=== PATIENT | male | born 1985 | race Caucasian/White ===

== ENCOUNTER 2018-11-10 11:42 | Inpatient (IN) | payer MEDICAID, OTHER ==
[~2018-11-10] VITALS: Ht 185.4 cm; Wt 95.0 kg
[2018-11-10] MEDS ORDERED: HYDROcodone/acetaminophen 5mg/325mg tablet PO ONE (13:50)
[2018-11-10] MEDS ORDERED: sulfamethoxazole/trimethoprim DS (800/160mg) tablet PO ONE (13:55)
[2018-11-10] MEDS ORDERED: CefTRIAXone 1000mg IM Kit (w/lidocaine diluent) IM ONE (13:55)
[2018-11-10] MEDS ORDERED: CefTRIAXone 2gm/D5W 50ml 50 ML IV ONE (14:00)
[2018-11-10] MEDS ORDERED: normal saline 1000ML IV soln IV ONE ×2 (14:00→15:45)
[2018-11-10 14:20] LABS: CLARITY,URINE CLOUDY (Clear); COLOR,URINE ORANGE (Yellow)
[2018-11-10 14:22] LABS: UA COLLECTION TYPE CLN CATCH MIDSTREAM
[2018-11-10 14:28] LABS: MUCUS STRANDS FEW /LPF (Neg)
[2018-11-10 14:29] LABS: FINE GRANULAR CAST 0-3 /LPF (NEGATIVE); SQUAMOUS EPITHELIAL CELL,UR MODERATE /LPF (FEW)
[2018-11-10 14:30] LABS: RBC,URINE 0-2 /HPF (0-2)
[2018-11-10 14:36] LABS: BASOPHILS # (AUTO) 0.1 X10'3 (0-0.2); LYMPHOCYTES # (AUTO) 0.8 X10'3 (1.1-4.8); MEAN CORPUSCULAR HEMOGLOBIN 32.4 PG (27.0-31.0); MEAN PLATELET VOLUME 8.4 FL (7.4-10.4); MONOCYTES # (AUTO) 1.5 X10'3 (0-0.9); NEUTROPHILS # (AUTO) 11.6 X10'3 (1.8-7.7); RED CELL DISTRIBUTION WIDTH 14.4 % (11.5-14.5)
[2018-11-10 14:38] LABS: BASOPHILS % (AUTO) 0.5 % (0-1); EOSINOPHILS % (AUTO) 0.2 % (0-6); HEMATOCRIT 49.6 % (42.0-52.0); HEMOGLOBIN 17.4 g/dl (14.0-17.9); LYMPHOCYTES % (AUTO) 5.9 % (21-51); MEAN CORPUSCULAR HGB CONC 35.1 g/dL (33.0-36.5); MEAN CORPUSCULAR VOLUME 92.5 FL (78-98); MONOCYTES % (AUTO) 10.4 % (2-12); PLATELET COUNT 112 X10'3 (140-440); RED BLOOD COUNT 5.37 X10'6 (4.70-6.10)
[2018-11-10 14:40] LABS: BACTERIA,URINE 2+ /HPF (Neg); HYALINE CASTS >30 /LPF (NEGATIVE); RENAL CELLS, URINE FEW /HPF; TRANSITIONAL EPI CELLS,URINE FEW /HPF
[2018-11-10 14:49] LABS: PARTIAL THROMBOPLASTIN TIME 32 SECONDS (22-32)
[2018-11-10 14:54] LABS: ALANINE AMINOTRANSFERASE 77 U/L (12-78); ALBUMIN 3.2 G/DL (3.4-5.0); ALBUMIN/GLOBULIN RATIO 0.7 (1.1-1.5); ALKALINE PHOSPHATASE 78 IU/L (46-116); ANION GAP 11 (8-16); ASPARTATE AMINO TRANSFERASE 85 U/L (10-37); BLOOD UREA NITROGEN 8 MG/DL (7-18); BUN/CREATININE RATIO 8.6 (5.4-32.0); CALCIUM 8.6 MG/DL (8.5-10.1); CHLORIDE 95 MMOL/L (99-107); CREATININE 0.93 MG/DL (0.60-1.10); GLUCOSE 136 MG/DL (70-104); MAGNESIUM 1.1 MG/DL (1.5-2.4); POTASSIUM 3.3 MMOL/L (3.5-5.1); SODIUM 129 MMOL/L (135-145); TOTAL CARBON DIOXIDE 23.5 MMOL/L (24-32); TOTAL PROTEIN 7.7 G/DL (6.4-8.2); eGFR > 90 ML/MIN
[2018-11-10 15:08] LABS: LARGE PLATELETS FEW; PLATELET ESTIMATE DECREASED; TOTAL CELLS COUNTED 100
[2018-11-10] MEDS ORDERED: magnesium 4gm in 100ml NS 100 ML IV PRN (16:05)
[2018-11-10] MEDS: K and/or MAG REPLACEMENT MC SCH (16:05)
[2018-11-10] MEDS ORDERED: morphine 2 MG/ML inj. syringe IV PRN ×2 (16:05)
[2018-11-10] MEDS ORDERED: potassium CL 10mEq/100ml bag 100 ML IV PRN ×2 (16:05)
[2018-11-10] MEDS ORDERED: acetaminophen 325mg tablet PO PRN (16:05)
[2018-11-10] MEDS ORDERED: HYDROcodone/acetaminophen 10/325mg tab PO PRN (16:05)
[2018-11-10] MEDS ORDERED: ondansetron/PF 4mg/2ml inj IV PRN (16:05)
[2018-11-10] MEDS ORDERED: magnesium hydroxide 30ml (MOM) UD suspension PO PRN (16:05)
[2018-11-10] MEDS ORDERED: HYDROcodone/acetaminophen 5mg/325mg tablet PO PRN (16:05)
[2018-11-10] MEDS ORDERED: magnesium 2GM in 50ml NS 50 ML IV PRN (16:05)
[2018-11-10] MEDS ORDERED: azithromycin 250mg tablet PO ONE (16:05)
[2018-11-10] MEDS ORDERED: mag hydrox/Alum hydrox/simeth 30ml oral suspension PO PRN (16:05)
[2018-11-10] MEDS ORDERED: potassium Cl 20 mEq SR tablet PO PRN (16:05)
[2018-11-10] MEDS ORDERED: NO HOME MEDS (16:16)
[2018-11-10] MEDS: normal saline 1000ml 1,000 ML IV SCH (18:29)
[2018-11-10] MEDS: potassium Cl 20 mEq SR tablet PO PRN (19:08)
[2018-11-10] MEDS: magnesium Cl slow-release 64mg tablet PO PRN (19:12)
--- NOTE | 2018-11-10 20:20 | NUR ---
Patient in room [facility]. I have received report from MUMTAZ Ledesma and had the opportunity to ask questions and assume patient care.
[2018-11-10 20:30] VITALS: BP 135/67
[2018-11-10] MEDS: cefepime 2g/NS 100ml ADVANTAGE 100 ML IV SCH (20:54)
[2018-11-10] MEDS: heparin, porcine 5000 units/ml vial SQ SCH (20:55)
[2018-11-10] MEDS: acetaminophen 325mg tablet PO PRN (23:58)
[2018-11-11] VITALS: BP 107/65
[2018-11-11] MEDS: potassium Cl 20 mEq SR tablet PO PRN ×4 (01:00→17:22)
[2018-11-11] MEDS: normal saline 1000ml 1,000 ML IV SCH ×3 (01:00→13:18)
[2018-11-11 05:53] LABS: BASOPHILS % (AUTO) 0.3 % (0-1); EOSINOPHILS % (AUTO) 0.1 % (0-6); HEMATOCRIT 46.6 % (42.0-52.0); HEMOGLOBIN 16.2 g/dl (14.0-17.9); LYMPHOCYTES # (AUTO) 0.8 X10'3 (1.1-4.8); LYMPHOCYTES % (AUTO) 7.3 % (21-51); MEAN CORPUSCULAR HEMOGLOBIN 32.2 PG (27.0-31.0); MEAN CORPUSCULAR HGB CONC 34.7 g/dL (33.0-36.5); MEAN CORPUSCULAR VOLUME 92.9 FL (78-98); MEAN PLATELET VOLUME 8.9 FL (7.4-10.4); MONOCYTES # (AUTO) 1.4 X10'3 (0-0.9); MONOCYTES % (AUTO) 12.5 % (2-12); NEUTROPHILS # (AUTO) 8.8 X10'3 (1.8-7.7); NEUTROPHILS % (AUTO) 79.8 % (42-75); PLATELET COUNT 87 X10'3 (140-440); RED BLOOD COUNT 5.02 X10'6 (4.70-6.10); RED CELL DISTRIBUTION WIDTH 14.1 % (11.5-14.5); WHITE BLOOD COUNT 11.1 X10'3 (4.5-11.0)
--- NOTE | 2018-11-11 06:04 | NUR ---
Problems reprioritized. Patient report given, questions answered & plan of care reviewed with MUMTAZ Moore.
[2018-11-11 06:08] LABS: ALANINE AMINOTRANSFERASE 58 U/L (12-78); ALBUMIN 2.6 G/DL (3.4-5.0); ALBUMIN/GLOBULIN RATIO 0.7 (1.1-1.5); ALKALINE PHOSPHATASE 63 IU/L (46-116); ANION GAP 13 (8-16); ASPARTATE AMINO TRANSFERASE 54 U/L (10-37); BILIRUBIN,TOTAL 1.9 MG/DL (0.1-1.0); BLOOD UREA NITROGEN 7 MG/DL (7-18); BUN/CREATININE RATIO 8.4 (5.4-32.0); CALCIUM 7.6 MG/DL (8.5-10.1); CHLORIDE 100 MMOL/L (99-107); CREATININE 0.83 MG/DL (0.60-1.10); GLUCOSE 103 MG/DL (70-104); MAGNESIUM 1.1 MG/DL (1.5-2.4); POTASSIUM 3.4 MMOL/L (3.5-5.1); SODIUM 133 MMOL/L (135-145); TOTAL CARBON DIOXIDE 20.4 MMOL/L (24-32); TOTAL PROTEIN 6.5 G/DL (6.4-8.2); eGFR > 90 ML/MIN
--- NOTE | 2018-11-11 06:41 | NUR ---
Patient in room [facility]. I have received report from MUMTAZ Puri and had the opportunity to ask questions and assume patient care.
[2018-11-11] MEDS: heparin, porcine 5000 units/ml vial SQ SCH (07:09)
[2018-11-11 07:41] LABS: PLATELET ESTIMATE DECREASED; TOTAL CELLS COUNTED 100
[2018-11-11 08:00] VITALS: BP 142/79
[2018-11-11] MEDS: K and/or MAG REPLACEMENT MC SCH (08:00)
[2018-11-11] MEDS: cefepime 2g/NS 100ml ADVANTAGE 100 ML IV SCH ×2 (08:17→20:43)
[2018-11-11] MEDS: acetaminophen 325mg tablet PO PRN ×2 (11:05→17:51)
[2018-11-11 12:00] VITALS: BP 145/81
--- NOTE | 2018-11-11 15:28 | NUR ---
Spoke with MD about patient plt count of 87 and holding heparin, received order to D/C because patient is ambulatory. MD also notified of patient fever of 102.4 and asked if MD wanted repeat blood cultures. stated that we do not need them since it is within 24 hour of them being drawn.
[2018-11-11] MEDS ORDERED: VANCOMYCIN LEVEL IV ONE (16:30)
[2018-11-11] MEDS ORDERED: LORazepam 2 mg/ml vial IV PRN (17:00)
[2018-11-11] MEDS ORDERED: dextrose 50%-water 50ml dispensing syringe IV PRN (17:00)
[2018-11-11] MEDS ORDERED: haloperidol lactate 5mg/ml inj IM PRN (17:00)
[2018-11-11] MEDS ORDERED: haloperidol 5mg tablet PO PRN (17:00)
[2018-11-11] MEDS: magnesium Cl slow-release 64mg tablet PO PRN (17:21)
--- NOTE | 2018-11-11 18:10 | NUR ---
Problems reprioritized. Patient report given, questions answered & plan of care reviewed with MUMTAZ Kimball.
[2018-11-11 18:51] LABS: CLARITY,URINE SLIGHTLY CLOUDY (Clear); COLOR,URINE AMBER (Yellow); GLUCOSE, URINE NEGATIVE (Neg); KETONES,URINE NEGATIVE (Neg); LEUKOCYTE ESTERASE ,URINE NEGATIVE (Neg); NITRITES, URINE NEGATIVE (Neg); OCCULT BLOOD,URINE TRACE-INTACT (Neg); PH,URINE 6.5 (4.8-8.0); PROTEIN,URINE TRACE mg/dl (Neg); UROBILINOGEN,URINE 0.2 E.U/dL (0.2-1.0)
[2018-11-11 18:52] LABS: UA COLLECTION TYPE CLN CATCH MIDSTREAM
[2018-11-11 18:59] LABS: BACTERIA,URINE FEW /HPF (Neg); RBC,URINE 0-2 /HPF (0-2); SQUAMOUS EPITHELIAL CELL,UR FEW /LPF (FEW); WBC,URINE 0-4 /HPF (0-4)
[2018-11-11 19:00] VITALS: BP 129/69
[2018-11-11 19:03] LABS: URINE AMPHETAMINE SCREEN NEGATIVE (Neg); URINE BARBITUATE SCREEN NEGATIVE (Neg); URINE BENZODIAZEPINES SCREEN NEGATIVE (Neg); URINE CANNABINOID SCREEN NEGATIVE (Neg); URINE COCAINE SCREEN NEGATIVE (Neg); URINE METHADONE SCREEN NEGATIVE (Neg); URINE OPIATE SCREEN POSITIVE (Neg); URINE PHENCYCLIDINE SCREEN NEGATIVE (Neg)
[2018-11-11] MEDS: lactobacillus rhamnosus 10,000 MMU CELLS/CAPSULE PO SCH (20:42)
[2018-11-12] MEDS: normal saline 1000ml 1,000 ML IV SCH ×3 (00:03→12:23)
[2018-11-12 00:33] VITALS: BP 132/79
[2018-11-12 06:35] LABS: BASOPHILS % (AUTO) 0.5 % (0-1); EOSINOPHILS # (AUTO) 0.1 X10'3 (0-0.9); EOSINOPHILS % (AUTO) 0.6 % (0-6); HEMATOCRIT 45.6 % (42.0-52.0); HEMOGLOBIN 15.7 g/dl (14.0-17.9); LYMPHOCYTES # (AUTO) 1.1 X10'3 (1.1-4.8); LYMPHOCYTES % (AUTO) 11.9 % (21-51); MEAN CORPUSCULAR HEMOGLOBIN 32.2 PG (27.0-31.0); MEAN CORPUSCULAR HGB CONC 34.5 g/dL (33.0-36.5); MEAN CORPUSCULAR VOLUME 93.3 FL (78-98); MEAN PLATELET VOLUME 9.2 FL (7.4-10.4); MONOCYTES # (AUTO) 1.2 X10'3 (0-0.9); NEUTROPHILS # (AUTO) 6.7 X10'3 (1.8-7.7); PLATELET COUNT 102 X10'3 (140-440); RED BLOOD COUNT 4.89 X10'6 (4.70-6.10); RED CELL DISTRIBUTION WIDTH 14.6 % (11.5-14.5)
[2018-11-12 06:50] LABS: ALANINE AMINOTRANSFERASE 53 U/L (12-78); ALBUMIN 2.6 G/DL (3.4-5.0); ALBUMIN/GLOBULIN RATIO 0.6 (1.1-1.5); ALKALINE PHOSPHATASE 63 IU/L (46-116); ANION GAP 14 (8-16); ASPARTATE AMINO TRANSFERASE 51 U/L (10-37); BILIRUBIN,TOTAL 1.2 MG/DL (0.1-1.0); BLOOD UREA NITROGEN 8 MG/DL (7-18); BUN/CREATININE RATIO 10.1 (5.4-32.0); CALCIUM 8.2 MG/DL (8.5-10.1); CHLORIDE 102 MMOL/L (99-107); CREATININE 0.79 MG/DL (0.60-1.10); GLUCOSE 99 MG/DL (70-104); MAGNESIUM 1.4 MG/DL (1.5-2.4); PHOSPHORUS 2.2 MG/DL (2.3-4.5); POTASSIUM 3.5 MMOL/L (3.5-5.1); SODIUM 135 MMOL/L (135-145); TOTAL CARBON DIOXIDE 19.3 MMOL/L (24-32); TOTAL PROTEIN 6.9 G/DL (6.4-8.2); eGFR > 90 ML/MIN
[2018-11-12 07:36] VITALS: BP 130/98
[2018-11-12] MEDS: cefepime 2g/NS 100ml ADVANTAGE 100 ML IV SCH ×2 (07:57→19:27)
[2018-11-12] MEDS: multivitamins, therapeutics tablet PO SCH (07:57)
[2018-11-12] MEDS: thiamine 100mg tablet PO SCH (07:57)
[2018-11-12] MEDS: lactobacillus rhamnosus 10,000 MMU CELLS/CAPSULE PO SCH ×2 (07:58→19:27)
[2018-11-12] MEDS: folic acid 1mg tablet PO SCH (07:58)
[2018-11-12] MEDS: K and/or MAG REPLACEMENT MC SCH (08:00)
[2018-11-12] MEDS: LORazepam 1 MG tablet PO PRN ×3 (08:32→12:21)
[2018-11-12 11:48] VITALS: BP 123/72
[2018-11-12] MEDS: magnesium Cl slow-release 64mg tablet PO PRN (12:21)
[2018-11-12] MEDS ORDERED: thiamine inj. 100 MG in normal saline 100ml IV soln 100 ML IV ONE (17:30)
[2018-11-12] MEDS ORDERED: haloperidol 5mg tablet PO PRN (17:30)
[2018-11-12] MEDS ORDERED: haloperidol lactate 5mg/ml inj IM PRN (17:30)
[2018-11-12 18:00] VITALS: BP 118/82
[2018-11-12] MEDS: LORazepam 2 mg/ml vial IV PRN ×4 (18:07→23:53)
[2018-11-12 18:17] LABS: URINE AMPHETAMINE SCREEN NEGATIVE (Neg); URINE BARBITUATE SCREEN NEGATIVE (Neg); URINE BENZODIAZEPINES SCREEN NEGATIVE (Neg); URINE CANNABINOID SCREEN NEGATIVE (Neg); URINE COCAINE SCREEN NEGATIVE (Neg); URINE METHADONE SCREEN NEGATIVE (Neg); URINE OPIATE SCREEN NEGATIVE (Neg); URINE PHENCYCLIDINE SCREEN NEGATIVE (Neg)
--- NOTE | 2018-11-12 18:25 | NUR ---
Patient in room [facility]. I have received report from Alina PANDYA and Jean Carlos PANDYA and had the opportunity to ask questions and assume patient care.
--- NOTE | 2018-11-12 18:31 | NUR ---
Problems reprioritized. Patient report given, questions answered & plan of care reviewed with Gilma PANDYA.
--- NOTE | 2018-11-12 18:46 | NUR ---
pt refused dinner tray, had pretzels and string cheese, blood sugar before dinner was 109 will reassess at 2100
[2018-11-12 19:00] VITALS: BP 118/82
[2018-11-13 00:20] VITALS: BP 154/101
[2018-11-13] MEDS ORDERED: VANCOMYCIN LEVEL IV ONE (01:30)
[2018-11-13] MEDS: LORazepam 2 mg/ml vial IV PRN ×2 (02:45→04:31)
[2018-11-13] MEDS: normal saline 1000ml 1,000 ML IV SCH ×3 (02:45→20:12)
[2018-11-13 03:00] LABS: ALANINE AMINOTRANSFERASE 66 U/L (12-78); ALBUMIN 2.4 G/DL (3.4-5.0); ALBUMIN/GLOBULIN RATIO 0.6 (1.1-1.5); ALKALINE PHOSPHATASE 59 IU/L (46-116); ANION GAP 11 (8-16); ASPARTATE AMINO TRANSFERASE 89 U/L (10-37); BILIRUBIN,TOTAL 1.2 MG/DL (0.1-1.0); BLOOD UREA NITROGEN 7 MG/DL (7-18); BUN/CREATININE RATIO 11.5 (5.4-32.0); CALCIUM 8.2 MG/DL (8.5-10.1); CHLORIDE 104 MMOL/L (99-107); CREATININE 0.61 MG/DL (0.60-1.10); GLUCOSE 92 MG/DL (70-104); MAGNESIUM 1.4 MG/DL (1.5-2.4); PHOSPHORUS 2.2 MG/DL (2.3-4.5); POTASSIUM 3.4 MMOL/L (3.5-5.1); SODIUM 137 MMOL/L (135-145); TOTAL CARBON DIOXIDE 22.2 MMOL/L (24-32); TOTAL PROTEIN 6.1 G/DL (6.4-8.2); eGFR > 90 ML/MIN
[2018-11-13 03:47] LABS: BASOPHILS % (AUTO) 0.6 % (0-1); EOSINOPHILS # (AUTO) 0.1 X10'3 (0-0.9); EOSINOPHILS % (AUTO) 1.8 % (0-6); HEMOGLOBIN 14.5 g/dl (14.0-17.9); LYMPHOCYTES # (AUTO) 0.9 X10'3 (1.1-4.8); LYMPHOCYTES % (AUTO) 12.5 % (21-51); MEAN CORPUSCULAR HEMOGLOBIN 32.9 PG (27.0-31.0); MEAN CORPUSCULAR HGB CONC 35.4 g/dL (33.0-36.5); MEAN CORPUSCULAR VOLUME 92.9 FL (78-98); MEAN PLATELET VOLUME 9.2 FL (7.4-10.4); MONOCYTES # (AUTO) 0.8 X10'3 (0-0.9); NEUTROPHILS % (AUTO) 73.1 % (42-75); PLATELET COUNT 109 X10'3 (140-440); RED BLOOD COUNT 4.41 X10'6 (4.70-6.10); RED CELL DISTRIBUTION WIDTH 14.4 % (11.5-14.5); WHITE BLOOD COUNT 6.9 X10'3 (4.5-11.0)
--- NOTE | 2018-11-13 05:50 | NUR ---
spoke with [facility] informed her pt is not keeping tele on right now, she stated she would put pts tele on standby until pts condition has changed, I will inform day shift wilma. pt was crawling in bed and banged mouth against end bed rail mouth bled slight wiped with gauze no more blood present, I will inform day shift nurse.
--- NOTE | 2018-11-13 06:24 | NUR ---
Gave report to Brenna PANDYA pt is laying on side, sitter at bedside, pt on RA,
[2018-11-13 07:00] VITALS: BP 142/64
[2018-11-13] MEDS: K and/or MAG REPLACEMENT MC SCH (08:00)
[2018-11-13] MEDS ORDERED: folic acid inj. 2 MG, thiamine inj. 100 MG, MVI, adult No.4 with vit. K 10 ML in dextro... IV SCH ×4 (08:00)
[2018-11-13] MEDS: thiamine 100mg tablet PO SCH (08:00)
[2018-11-13] MEDS: cefepime 2g/NS 100ml ADVANTAGE 100 ML IV SCH ×2 (08:31→20:07)
--- NOTE | 2018-11-13 09:17 | NUR ---
PT IS SLEEPY AND SOMEWHAT GROGGY, HUNG IV MEDS BUT WILL WAIT FOR HIM TO BE MORE ALERT TO GIVE PO MEDS
[2018-11-13] MEDS: lactobacillus rhamnosus 10,000 MMU CELLS/CAPSULE PO SCH ×2 (09:51→21:29)
[2018-11-13] MEDS: potassium Cl 20 mEq SR tablet PO PRN (09:51)
[2018-11-13] MEDS: folic acid 1mg tablet PO SCH (09:51)
[2018-11-13] MEDS: multivitamins, therapeutics tablet PO SCH (09:51)
[2018-11-13] MEDS: magnesium Cl slow-release 64mg tablet PO PRN (09:51)
[2018-11-13 11:00] VITALS: BP 134/79
--- NOTE | 2018-11-13 13:00 | NUR ---
pt is alert and able to speak. he is not agitated
[2018-11-13] MEDS: piperacillin/tazo 3.375gm/50ml 50 ML IV SCH ×2 (16:00→23:27)
--- NOTE | 2018-11-13 16:50 | NUR ---
offered scrotal support and tried to put tele on several times. pt is pleasant but quite active. constantly moving and shifting.
--- NOTE | 2018-11-13 18:05 | NUR ---
Received report from Brenna PANDYA pt is on RA, mother at bedside,in no apparent distress,
--- NOTE | 2018-11-13 18:11 | NUR ---
GAVE REPORT TO HECTOR PANDYA
[2018-11-13 19:00] VITALS: BP 157/91
[2018-11-14 00:41] VITALS: BP 144/74
[2018-11-14] MEDS: normal saline 1000ml 1,000 ML IV SCH ×2 (02:39→08:03)
[2018-11-14 06:13] LABS: BASOPHILS % (AUTO) 0.7 % (0-1); EOSINOPHILS # (AUTO) 0.2 X10'3 (0-0.9); EOSINOPHILS % (AUTO) 3.3 % (0-6); HEMATOCRIT 43.7 % (42.0-52.0); HEMOGLOBIN 15.3 g/dl (14.0-17.9); LYMPHOCYTES % (AUTO) 14.2 % (21-51); MEAN CORPUSCULAR HEMOGLOBIN 32.8 PG (27.0-31.0); MEAN CORPUSCULAR VOLUME 93.7 FL (78-98); MONOCYTES # (AUTO) 0.7 X10'3 (0-0.9); MONOCYTES % (AUTO) 9.6 % (2-12); NEUTROPHILS # (AUTO) 5.1 X10'3 (1.8-7.7); NEUTROPHILS % (AUTO) 72.2 % (42-75); PLATELET COUNT 138 X10'3 (140-440); RED BLOOD COUNT 4.66 X10'6 (4.70-6.10); RED CELL DISTRIBUTION WIDTH 14.3 % (11.5-14.5)
[2018-11-14 06:26] LABS: ALANINE AMINOTRANSFERASE 141 U/L (12-78); ALBUMIN 2.4 G/DL (3.4-5.0); ALBUMIN/GLOBULIN RATIO 0.6 (1.1-1.5); ALKALINE PHOSPHATASE 67 IU/L (46-116); ANION GAP 10 (8-16); ASPARTATE AMINO TRANSFERASE 172 U/L (10-37); BILIRUBIN,TOTAL 1.3 MG/DL (0.1-1.0); BLOOD UREA NITROGEN 5 MG/DL (7-18); BUN/CREATININE RATIO 8.6 (5.4-32.0); CALCIUM 8.1 MG/DL (8.5-10.1); CHLORIDE 102 MMOL/L (99-107); CREATININE 0.58 MG/DL (0.60-1.10); GLUCOSE 81 MG/DL (70-104); MAGNESIUM 1.7 MG/DL (1.5-2.4); POTASSIUM 3.7 MMOL/L (3.5-5.1); SODIUM 136 MMOL/L (135-145); TOTAL CARBON DIOXIDE 24.1 MMOL/L (24-32); TOTAL PROTEIN 6.4 G/DL (6.4-8.2); eGFR > 90 ML/MIN
--- NOTE | 2018-11-14 06:33 | NUR ---
Gave report to Brenna PANDYA pt is resting, sitter at bedside
--- NOTE | 2018-11-14 06:44 | NUR ---
RECEIVED REPORT FROM HECTOR PANDYA. DID BEDSIDE REPORT. AFTER BEDSIDE REPORT, CHECKED IN WITH SITTER. PT IS ON 3 ABX. LET SITTER KNOW TO NOTIFY ME IF PT IS HAVING LOOSE STOOL.
[2018-11-14 07:00] VITALS: BP 147/98
[2018-11-14] MEDS: thiamine 100mg tablet PO SCH (07:56)
[2018-11-14] MEDS: multivitamins, therapeutics tablet PO SCH (07:57)
[2018-11-14] MEDS: folic acid 1mg tablet PO SCH (07:57)
[2018-11-14] MEDS: lactobacillus rhamnosus 10,000 MMU CELLS/CAPSULE PO SCH ×2 (07:57→20:32)
[2018-11-14] MEDS: cefepime 2g/NS 100ml ADVANTAGE 100 ML IV SCH ×2 (08:00→20:06)
[2018-11-14] MEDS: K and/or MAG REPLACEMENT MC SCH (08:00)
--- NOTE | 2018-11-14 08:08 | NUR ---
checked vanco trough before admin vanco. trough nromal vanco adminned
--- NOTE | 2018-11-14 08:09 | NUR ---
MOM CALLED FOR AN UPDATE. SHE WILL BE IN LATER THIS MORNING.
[2018-11-14] MEDS: piperacillin/tazo 3.375gm/50ml 50 ML IV SCH ×2 (10:00→20:18)
[2018-11-14 11:00] VITALS: BP 119/71
[2018-11-14] MEDS: fluconazole 100mg tablet PO SCH (12:06)
[2018-11-14] MEDS: nystatin 15 GM powder TP SCH ×2 (13:00→20:34)
[2018-11-14] MEDS ORDERED: LORazepam 1 MG tablet PO PRN (17:30)
[2018-11-14] MEDS ORDERED: LORazepam 2 mg/ml vial IV PRN (17:30)
[2018-11-14 19:00] VITALS: BP 142/99
[2018-11-14 23:38] VITALS: BP 156/105
[2018-11-15] VITALS (7 sets, daily range): BP systolic 137–144; BP diastolic 82–98
[2018-11-15] MEDS: piperacillin/tazo 3.375gm/50ml 50 ML IV SCH (04:01)
[2018-11-15 05:29] LABS: BASOPHILS # (AUTO) 0.1 X10'3 (0-0.2); EOSINOPHILS # (AUTO) 0.3 X10'3 (0-0.9); HEMOGLOBIN 15.4 g/dl (14.0-17.9); LYMPHOCYTES # (AUTO) 1.3 X10'3 (1.1-4.8); MEAN CORPUSCULAR HEMOGLOBIN 32.3 PG (27.0-31.0); MONOCYTES # (AUTO) 0.8 X10'3 (0-0.9); NEUTROPHILS % (AUTO) 64.1 % (42-75)
[2018-11-15 05:32] LABS: BASOPHILS % (AUTO) 0.8 % (0-1); MEAN CORPUSCULAR HGB CONC 34.3 g/dL (33.0-36.5); MEAN CORPUSCULAR VOLUME 94.2 FL (78-98); MEAN PLATELET VOLUME 8.7 FL (7.4-10.4); MONOCYTES % (AUTO) 12.1 % (2-12); NEUTROPHILS # (AUTO) 4.3 X10'3 (1.8-7.7); PLATELET COUNT 190 X10'3 (140-440); RED BLOOD COUNT 4.78 X10'6 (4.70-6.10); RED CELL DISTRIBUTION WIDTH 14.2 % (11.5-14.5); WHITE BLOOD COUNT 6.7 X10'3 (4.5-11.0)
[2018-11-15 05:34] LABS: ALANINE AMINOTRANSFERASE 196 U/L (12-78); ALBUMIN 2.4 G/DL (3.4-5.0); ALBUMIN/GLOBULIN RATIO 0.6 (1.1-1.5); ALKALINE PHOSPHATASE 72 IU/L (46-116); ANION GAP 10 (8-16); ASPARTATE AMINO TRANSFERASE 197 U/L (10-37); BILIRUBIN,TOTAL 0.8 MG/DL (0.1-1.0); BLOOD UREA NITROGEN 5 MG/DL (7-18); BUN/CREATININE RATIO 7.5 (5.4-32.0); CALCIUM 8.3 MG/DL (8.5-10.1); CHLORIDE 103 MMOL/L (99-107); CREATININE 0.67 MG/DL (0.60-1.10); GLUCOSE 124 MG/DL (70-104); MAGNESIUM 1.9 MG/DL (1.5-2.4); PHOSPHORUS 3.3 MG/DL (2.3-4.5); POTASSIUM 3.4 MMOL/L (3.5-5.1); SODIUM 138 MMOL/L (135-145); TOTAL CARBON DIOXIDE 24.7 MMOL/L (24-32); TOTAL PROTEIN 6.5 G/DL (6.4-8.2); eGFR > 90 ML/MIN
--- NOTE | 2018-11-15 06:43 | NUR ---
Problems reprioritized. Patient report given, questions answered & plan of care reviewed with MUMTAZ Giles.
--- NOTE | 2018-11-15 06:45 | NUR ---
Patient in room [facility] 348. I have received report from MUMTAZ BORDEN and had the opportunity to ask questions and assume patient care.
[2018-11-15] MEDS: multivitamins, therapeutics tablet PO SCH (07:23)
[2018-11-15] MEDS: thiamine 100mg tablet PO SCH (07:23)
[2018-11-15] MEDS: fluconazole 100mg tablet PO SCH (07:23)
[2018-11-15] MEDS: cefepime 2g/NS 100ml ADVANTAGE 100 ML IV SCH (07:23)
[2018-11-15] MEDS: lactobacillus rhamnosus 10,000 MMU CELLS/CAPSULE PO SCH ×2 (07:23→19:26)
[2018-11-15] MEDS: nystatin 15 GM powder TP SCH ×3 (07:23→19:59)
[2018-11-15] MEDS: folic acid 1mg tablet PO SCH (07:23)
[2018-11-15] MEDS: K and/or MAG REPLACEMENT MC SCH (08:00)
[2018-11-15] MEDS ORDERED: iohexol 300mg/ml 100ml inj. ONE (12:45)
[2018-11-15] MEDS ORDERED: potassium CL 10mEq/100ml bag 100 ML IV PRN (13:00)
[2018-11-15] MEDS ORDERED: potassium Cl 20 mEq SR tablet PO PRN (13:00)
[2018-11-15] MEDS: potassium Cl 20 mEq SR tablet PO PRN ×3 (14:42→23:35)
--- NOTE | 2018-11-15 15:06 | NUR ---
initial: patient with good appetite, ate poorly between 11/12-11/13 and otherwise has been eating 75-100% of meals. Admitted with sepsis, scrotal cellulitis, and EtOH withdrawal, receiving thiamine and folic acid. Patient receiving zyvox, met at bedside and given written low tyramine education handout with verbal review. Recommend: 1. continue regular diet 2. weight per rx Addendum: 11/15/18 at [address] Amended: Links added.
[2018-11-15] MEDS: piperacillin/tazo 4.5gm/100ml 100 ML IV SCH ×2 (15:41→23:25)
[2018-11-15] MEDS: normal saline 1000ml 1,000 ML IV SCH ×2 (17:51→23:23)
--- NOTE | 2018-11-15 18:51 | NUR ---
Problems reprioritized. Patient report given, questions answered & plan of care reviewed with MUMTAZ LOERA.
--- NOTE | 2018-11-15 18:55 | NUR ---
Patient in room [facility] 348. I have received report from Tisha PANDYA and had the opportunity to ask questions and assume patient care.
[2018-11-15] MEDS: linezolid 600mg tablet PO SCH (19:27)
[2018-11-16] MEDS: normal saline 1000ml 1,000 ML IV SCH (03:21)
--- NOTE | 2018-11-16 06:27 | NUR ---
Patient in room [facility] 348. I have received report from MUMTAZ Morelos and had the opportunity to ask questions and assume patient care.
--- NOTE | 2018-11-16 06:30 | NUR ---
Problems reprioritized. Patient report given, questions answered & plan of care reviewed with Onelia PANDYA.
[2018-11-16 06:56] VITALS: BP 139/93
[2018-11-16] MEDS: K and/or MAG REPLACEMENT MC SCH (08:00)
[2018-11-16] MEDS: piperacillin/tazo 4.5gm/100ml 100 ML IV SCH (08:25)
[2018-11-16] MEDS: nystatin 15 GM powder TP SCH ×3 (08:25→21:57)
[2018-11-16] MEDS: thiamine 100mg tablet PO SCH (08:25)
[2018-11-16] MEDS: lactobacillus rhamnosus 10,000 MMU CELLS/CAPSULE PO SCH ×2 (08:25→21:45)
[2018-11-16] MEDS: folic acid 1mg tablet PO SCH (08:25)
[2018-11-16] MEDS: multivitamins, therapeutics tablet PO SCH (08:25)
[2018-11-16] MEDS: linezolid 600mg tablet PO SCH ×2 (08:25→21:45)
[2018-11-16 11:45] VITALS: BP 136/86
[2018-11-16 12:14] LABS: POTASSIUM 3.7 MMOL/L (3.5-5.1)
[2018-11-16] MEDS ORDERED: LORazepam 1 MG tablet PO PRN (17:30)
[2018-11-16] MEDS ORDERED: LORazepam 2 mg/ml vial IV PRN (17:30)
[2018-11-16 18:30] VITALS: BP 133/85
--- NOTE | 2018-11-16 18:30 | NUR ---
Patient in room [facility] 348. I have received report from Tisha PANDYA and had the opportunity to ask questions and assume patient care.
--- NOTE | 2018-11-16 18:33 | NUR ---
Problems reprioritized. Patient report given, questions answered & plan of care reviewed with MUMTAZ Morelos.
[2018-11-17] VITALS: BP 129/72
--- NOTE | 2018-11-17 06:30 | NUR ---
Problems reprioritized. Patient report given, questions answered & plan of care reviewed with Bertha PANDYA.
[2018-11-17 08:00] VITALS: BP 131/86
[2018-11-17] MEDS: K and/or MAG REPLACEMENT MC SCH (08:00)
[2018-11-17] MEDS: multivitamins, therapeutics tablet PO SCH (08:25)
[2018-11-17] MEDS: thiamine 100mg tablet PO SCH (08:25)
[2018-11-17] MEDS: folic acid 1mg tablet PO SCH (08:25)
[2018-11-17] MEDS: linezolid 600mg tablet PO SCH (08:25)
[2018-11-17] MEDS: nystatin 15 GM powder TP SCH (08:26)
[2018-11-17] MEDS: lactobacillus rhamnosus 10,000 MMU CELLS/CAPSULE PO SCH (08:26)
[2018-11-17] MEDS ORDERED: LINE600T14 PO (10:15)
[2018-11-17 11:00] VITALS: BP 148/77
--- NOTE | 2018-11-17 11:00 | NUR ---
Resource nurse received call from lab and let this nurse know that pt. 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 Pt. immediately placed on contact precautions for infection control. pt. made aware. made aware. Discharge on hold until we can verify that Zyvox can be covered by insurance.
--- NOTE | 2018-11-17 11:47 | NUR ---
Spoke with case management r/t Zyvox prescription and coverage. Pt. does not have insurance- hospital will cover medication and [facility] will fax pharmacy.
--- NOTE | 2018-11-17 13:21 | NUR ---
Patient A&O and no apparent distress. Patient able to ambulate for DC with no complaints accompanied by x1 staff and parents. 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 All patient belongings dc'd with patient.
--- NOTE | 2018-11-17 13:47 | NUR ---
Pt. discharge while this RN was on break. IV DC'd pressure bandage applied, no s/sx bleeding noted. Pt. mother picked him up in a private vehicle, hospital staff escorted him out of hospital. Pt. left with his belongings. He is aware to return if any worsening symptoms, he has had verbal and written education on his new antibiotic and on self care. He is aware to Go to [facility] for his prescription and to f/u with his PCP within a week.
--- NOTE | 2018-11-17 16:19 | NUR ---
called to receive contact information for pt. She would like pt. to follow up outpatient with labs r/t elevated liver tests. Contact information provided to .
== END 2018-11-17 13:20 | disposition home or self-care (01) | DRG 720 ==
LOC: ER 11:43 → SUR 3N 20:56 → CMPBEDREQ 21:25 → SUR 3N 11-15 10:19
PROVIDERS: ADMIT Family Medicine; ATTEND Internal Medicine
PROC: BW2G1ZZ Computerized Tomography (CT Scan) of Pelvic Region using Low Osmolar Contrast (ICD-10-PCS; principal; 2018-11-15)
DX: A41.9 Sepsis, unspecified organism (principal); E87.1 Hypo-osmolality and hyponatremia; E87.6 Hypokalemia; N39.0 Urinary tract infection, site not specified; N49.2 Inflammatory disorders of scrotum; N50.89 Other specified disorders of the male genital organs; E86.1 Hypovolemia; E66.9 Obesity, unspecified; F10.239 Alcohol dependence with withdrawal, unspecified; R94.5 Abnormal results of liver function studies; Z71.3 Dietary counseling and surveillance; Z68.27 Body mass index [BMI] 27.0-27.9, adult
CPT/HCPCS: 36415; 72193; 76870; 80053; 80202; 80305; 81001; 82948; 83605; 83735; 84100; 84132; 84145; 85025; 85610; 85730; 87040; 87070; 87077; 87081; 87088; 87186; 96365; 96375; 99285; G0378; J0692; J0696; J1644; J2060; J2270; J2543; J3370; J7030; Q9967